=== PATIENT | male | born 1980 | race Caucasian/White ===

== ENCOUNTER 2019-10-27 13:53 | Inpatient (IN) | payer OTHER ==
[~2019-10-27] VITALS: Ht 170.2 cm; Wt 88.6 kg
[2019-10-27] MEDS ORDERED: CRES5TAB PO (14:02)
[2019-10-27] MEDS ORDERED: LISI2.5T2 PO (14:02)
[2019-10-27] MEDS ORDERED: METF-838 PO ×2 (14:04→16:43)
[2019-10-27 15:05] LABS: INR 0.96; PROTHROMBIN TIME 12.5 SECONDS (11.8-14.0)
[2019-10-27 15:06] LABS: PARTIAL THROMBOPLASTIN TIME 37.4 SECONDS (25.0-38.4)
[2019-10-27] MEDS ORDERED: ISOVUE-370 76% 100ML VIAL As Ordered ONE (15:36)
[2019-10-27] MEDS ORDERED: NS 1,000 ML IV ONE ×2 (15:45→17:00)
[2019-10-27 15:47] LABS: ALBUMIN 3.6 GM/DL (3.2-5.2); ALT/SGPT 45 U/L (12-78); AMYLASE 41 U/L (25-115); BASO # 0.1 10^3/uL (0.0-0.2); BASO % 0.5 % (0.0-1.0); BILIRUBIN,DIRECT 0.1 MG/DL (0.0-0.2); BILIRUBIN,TOTAL 1.1 MG/DL (0.2-1.0); EOS # 0.3 10^3/uL (0.0-0.5); EOS % 1.5 % (0.0-3.0); HEMATOCRIT 41.1 % (42.0-52.0); LIPASE 307 U/L (73-393); LYMPH # 3.1 10^3/uL (1.5-5.0); LYMPH % 16.5 % (24.0-44.0); MEAN CORPUSCULAR VOLUME 83.7 fl (80.0-96.0); MONO # 1.3 10^3/uL (0.0-0.8); MONO % 6.9 % (0.0-5.0); NEUTROPHILS % 73.8 % (36.0-66.0); PLATELET COUNT, AUTOMATED 272 10^3/uL (150-450); RED BLOOD COUNT 4.91 10^6/uL (4.30-6.10); TOTAL PROTEIN 7.2 GM/DL (6.4-8.2); TROPONIN I < 0.02 NG/ML (< 0.10); WHITE BLOOD COUNT 18.9 10^3/uL (4.0-10.0)
[2019-10-27 15:49] LABS: CK-MB VALUE MASS < 1.0 NG/ML (<3.6); CPK CREATINE PHOSPHOKINASE 73 U/L (39-308); HEMOGLOBIN 14.8 g/dl (13.5-17.5); MB/CK RELATIVE INDEX 1.37 (< OR =4)
[2019-10-27 15:50] LABS: MEAN CORPUSCULAR HEMOGLOBIN 30.3 pg (27.0-33.0); MEAN CORPUSCULAR HGB CONC 36.4 g/dl (32.0-36.5)
[2019-10-27] MEDS ORDERED: KETOROLAC 30 MG/ML 1ML VIAL IV ONE (16:30)
[2019-10-27] MEDS ORDERED: ACETAMINOPHEN 500 MG TAB PO ONE ×2 (16:30→19:00)
[2019-10-27] MEDS ORDERED: LISI10TA4 PO (16:43)
[2019-10-27] MEDS ORDERED: ESCI10TA2 PO (16:43)
[2019-10-27] MEDS ORDERED: ROSU20TA5 PO (16:43)
[2019-10-27] MEDS ORDERED: ZETI10TA16 PO (16:43)
[2019-10-27] MEDS ORDERED: PIPERACILLIN/TAZOBACTAM SOD 4.5 GM in D5W MINI-BAG PLUS 50 ML IV ONE (17:00)
[2019-10-27] MEDS ORDERED: NS 1,660 ML in IV 1 EA IV ONE (17:00)
[2019-10-27 17:43] LABS: C REACTIVE PROTEIN QUANTITATIV 7.33 MG/DL (0.00-0.30)
[2019-10-27 18:00] VITALS: BP 148/100
--- NOTE | 2019-10-27 18:26 | REPVR ---
PROCEDURE INFORMATION: Exam: US Abdomen, Limited; Right Upper Quadrant Exam date and time: 10/27/2019 5:34 PM Age: 39 years old Clinical indication: Condition or disease; Pancreatic condition; Pancreatitis; Additional info: Pancreatitis R/O gallstones TECHNIQUE: Imaging protocol: US abdomen. Real time ultrasound with image documentation. Limited exam focused on the right upper quadrant. COMPARISON: CT ABD/PEL W/IV CONTRAST ONLY 10/27/2019 3:37 PM FINDINGS: Liver: The liver is increased in echogenicity, most commonly due to fatty infiltration, but other chronic liver diseases may have a similar appearance. Evaluation of the liver is technically limited. A small area of hypoechogenicity is identified within the hepatic parenchyma adjacent to the gallbladder, likely due to fatty sparing. Gallbladder: Within the dependent portion of the gallbladder, there is a nonshadowing polyp or gallstone. This measures 3-4 mm in diameter. No significant gallbladder wall thickening. No pericholecystic fluid. Common bile duct: The common bile duct measures 4-5 mm in diameter, which is within normal limits. Pancreas: There is suboptimal evaluation of the pancreas, likely contributed by bowel gas. Refer to the CT abdomen/pelvis report from the same day for discussion of pancreatic findings in a patient with a clinical history of pancreatitis. Right kidney: The right kidney measures 11.7 x 5.1 x 4.7 cm. No hydronephrosis or shadowing nephrolithiasis. IMPRESSION: 1. The liver is increased in echogenicity, most commonly due to fatty infiltration, but other chronic liver diseases may have a similar appearance. 2. Within the dependent portion of the gallbladder, there is a small nonshadowing polyp or gallstone. Follow-up ultrasonography recommended. 3. Additional findings described above. Electronically signed by: Pal Cheung On 10/27/2019 18:26:01 PM
[2019-10-27] MEDS ORDERED: lisinopriL 10 MG TAB PO ONE (19:00)
[2019-10-27] MEDS ORDERED: LABETALOL 100 MG TAB PO ONE (19:00)
[2019-10-27] MEDS ORDERED: MORPHINE 30 MG TAB **MSIR PO PRN (19:00)
[2019-10-27] MEDS ORDERED: MORPHINE 4 MG/ML 1ML VIAL/SYRINGE (J2270) IV PRN (19:00)
[2019-10-27] MEDS ORDERED: ACETAMINOPHEN TAB 650MG DOSE (2X325MG) PO PRN (19:00)
[2019-10-27] MEDS ORDERED: PILL CUTTER 1 EACH XX PRN (19:00)
[2019-10-27] MEDS: ROSUVASTATIN 10 MG TAB (CRESTOR) PO SCH (20:53)
[2019-10-27 22:00] VITALS: BP 153/105
[2019-10-27] MEDS ORDERED: LABETALOL 100 MG TAB PO SCH (22:00)
[2019-10-27] MEDS ORDERED: DEXTROSE 50% 50 ML SYRINGE IV PRN (22:45)
[2019-10-27] MEDS ORDERED: **hydrALAZINE** 10 MG TAB PO PRN (22:45)
[2019-10-27] MEDS ORDERED: GLUCOSE 4GM CHEW TABLET PO PRN (22:45)
[2019-10-27] MEDS ORDERED: GLUCAGON INJ 1MG VIAL SC PRN (22:45)
[2019-10-27] MEDS: KETOROLAC 30 MG/ML 1ML VIAL IV SCH (23:05)
[2019-10-27] MEDS ORDERED: **hydrALAZINE** 10 MG TAB PO ONE (23:30)
[2019-10-27] MEDS: PIPERACILLIN/TAZOBACTAM SOD 4.5 GM in D5W MINI-BAG PLUS 50 ML IV SCH (23:46)
[2019-10-28] MEDS ORDERED: PIPERACILLIN/TAZOBACTAM SOD 4.5 GM in D5W MINI-BAG PLUS 50 ML IV SCH ×2
--- NOTE | 2019-10-28 02:54 | REP ---
CT ABDOMEN AND PELVIS WITH IV CONTRAST: TECHNIQUE: Axial contrast-enhanced images from the lung bases to the pubic symphysis using 100 mL Isovue-370 intravenous contrast material with multiplanar reformations. The visualized lung bases demonstrate no evidence of infiltrate. The liver is enlarged and demonstrates diffuse fatty infiltration. Spleen is unremarkable, as are the adrenal glands and kidneys. There is no hydronephrosis. There is inflammatory change surrounding the tail of the pancreas with mild free fluid in this region. Findings are consistent with pancreatitis. I see no pancreatic duct dilatation. The gallbladder is grossly unremarkable. There is no abdominal aortic aneurysm. There is no adenopathy. There is no free air. There is no bowel wall thickening. The appendix is normal. There is no pelvic mass. Urinary bladder is mildly distended and grossly unremarkable. IMPRESSION: Findings compatible with pancreatitis in the region of the tail of the pancreas. There is surrounding inflammatory change and mild free fluid. No evidence of pancreatic duct dilatation. Hepatomegaly; length of the liver is approximately 22 cm. There is diffuse fatty infiltration of the liver. Electronically Signed by Nathaniel Gallo MD 10/30/2019 10:48 P
[2019-10-28] MEDS: LABETALOL 100 MG TAB PO SCH ×3 (05:15→20:48)
[2019-10-28] MEDS: KETOROLAC 30 MG/ML 1ML VIAL IV SCH ×2 (05:16→10:04)
[2019-10-28] MEDS: PIPERACILLIN/TAZOBACTAM SOD 4.5 GM in D5W MINI-BAG PLUS 50 ML IV SCH ×3 (05:16→17:43)
[2019-10-28 06:00] VITALS: BP 142/101
[2019-10-28 06:32] LABS: IONIZED CALCIUM 4.3 MG/DL (4.5-5.3)
[2019-10-28 07:04] LABS: BASO # 0.1 10^3/uL (0.0-0.2); BASO % 0.4 % (0.0-1.0); EOS # 0.2 10^3/uL (0.0-0.5); EOS % 1.2 % (0.0-3.0); HEMATOCRIT 34.7 % (42.0-52.0); LYMPH % 12.2 % (24.0-44.0); MEAN CORPUSCULAR HEMOGLOBIN 30.8 pg (27.0-33.0); MEAN CORPUSCULAR VOLUME 84.2 fl (80.0-96.0); MONO % 6.2 % (0.0-5.0); NEUTROPHILS # 12.7 10^3/uL (1.5-8.5); NEUTROPHILS % 79.4 % (36.0-66.0); PLATELET COUNT, AUTOMATED 220 10^3/uL (150-450); RED BLOOD COUNT 4.12 10^6/uL (4.30-6.10)
[2019-10-28 07:08] LABS: HEMOGLOBIN 12.7 g/dl (13.5-17.5); MEAN CORPUSCULAR HGB CONC 36.6 g/dl (32.0-36.5)
[2019-10-28 07:19] LABS: ALBUMIN 2.4 GM/DL (3.2-5.2); BILIRUBIN,TOTAL 1.1 MG/DL (0.2-1.0); CALCIUM LEVEL 7.1 MG/DL (8.5-10.1); CARBON DIOXIDE LEVEL 24 MEQ/L (21-32); CHLORIDE LEVEL 99 MEQ/L (98-107); CHOLESTEROL LEVEL 372 MG/DL (<200); CREATININE FOR GFR 1.11 MG/DL (0.70-1.30); GLOMERULAR FILTRATION RATE > 60.0 (>60); GLUCOSE, FASTING 311 MG/DL (70-100); HDL CHOLESTEROL 25 MG/DL (>40); NON-HDL-C 347 MG/DL; POTASSIUM SERUM 3.7 MEQ/L (3.5-5.1); SODIUM LEVEL 132 MEQ/L (136-145); TRIGLYCERIDES LEVEL 3285 MG/DL (<150)
[2019-10-28 07:58] LABS: ALT/SGPT 31 U/L (12-78); BLOOD UREA NITROGEN 8 MG/DL (7-18); TOTAL PROTEIN 6.5 GM/DL (6.4-8.2)
[2019-10-28] MEDS: ROSUVASTATIN 10 MG TAB (CRESTOR) PO SCH (09:22)
[2019-10-28] MEDS: ESCITALOPRAM OXALATE 10 MG TAB (LEXAPRO) PO SCH (09:22)
[2019-10-28] MEDS: EZETIMIBE 10 MG TAB (ZETIA) PO SCH (09:23)
[2019-10-28] MEDS: lisinopriL 10 MG TAB PO SCH (09:23)
--- NOTE | 2019-10-28 10:13 | ECGEPIP ---
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
[2019-10-28] MEDS: NIACIN 100 MG TAB PO SCH ×3 (12:19→20:48)
[2019-10-28] MEDS ORDERED: FENO145T7 PO (12:24)
[2019-10-28] MEDS ORDERED: AUGM875T28 PO (12:24)
[2019-10-28] MEDS ORDERED: NIAC10TAB PO (12:24)
--- NOTE | 2019-10-28 12:30 | HPE ---
DATE OF ADMISSION: 10/27/2019 CHIEF COMPLAINT: Left upper quadrant abdominal pain. HISTORY OF PRESENT ILLNESS: This is a 39-year-old male with history of type 2 diabetes and hypertension, both diagnosed two years ago, hypertriglyceridemia, who had run out of his fenofibrate for the past week and has not been on medications who was well until yesterday morning when he woke up and was very hungry. He ate two bowls of cereal and drank the milk from the cereal bowl. He sat on his couch and fell asleep. Upon awakening, he had an epigastric left upper quadrant abdominal pain which was band-like and radiating across without fever or chills. The patient then went to work for two hours and had taken some Pepto Bismol when he returned but with persistent pain. He had nausea all day, but did not vomit. He then was able to sleep through the night, but it was still quite achy and stabbing. He took more Pepto Bismol, felt like he had a golf ball in his left upper quadrant. Then, this morning, the patient had persistent symptoms prompting him to come to the emergency room. He did have a normal bowel movement at 11:30 today. He said that it was formed stool, not diarrhea, and not acholic. The patient denies any fever or chills at home. He denies any shortness of breath, chest pain, pressure, or tightness, lightheadedness, or dizziness. No dysuria, urgency or frequency. No flank pain. The patient denies any rhinorrhea, congestion, changes in vision, upper or lower extremity weakness, paresthesia, abnormal lumps or bumps, anxiety, or depression. All other systems were negative. In the ER, he was found to be febrile with 100.3 to 100.4 temperature. White count of 18.9. Ultrasound of the gallbladder shows small non shadowing polyp or gallstone. Followup ultrasound recommended. The hospitalist was called to admit for acute pancreatitis. PAST MEDICAL HISTORY: 1. Diabetes type 2. 2. Hypertension. 3. Hypercholesterolemia. 4. The patient had a left wrist cyst with resection. 5. Left knee surgery. ALLERGIES: No known drug allergies. 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 He previously smoked cigarettes, about one pack a day since age of 15, quit 2 months ago. Social alcohol use. Says that he barely drinks two beers a month. FAMILY HISTORY: Father with obstructive sleep apnea (JESUS), chronic obstructive pulmonary disease (COPD), oxygen dependent, on dialysis, in his 70s. Mother in her 70s with hypercholesterolemia. REVIEW OF SYSTEMS: Per history of present illness (HPI), 12 point system otherwise negative. PHYSICAL EXAMINATION: Temperature 100.4, pulse 110, respiratory rate 18, blood pressure 140/90, 96% on room air. Generally, the patient is awake, alert and oriented to person, place and time, answering questions appropriately. Anicteric. No jaundice. No cervical lymphadenopathy or thyromegaly. Lungs are clear to auscultation. No wheezing, rales or rhonchi. Heart: S1, S2. Sinus tachycardia. No murmurs, rubs or gallops. Abdomen: Soft. Tender in the epigastric/left upper quadrant. No rebound or guarding. Positive bowel sounds. No hepatosplenomegaly. Extremities: No cyanosis, clubbing or any pitting edema. LABORATORY DATA: White count 18.9, hemoglobin 14, hematocrit 41, platelet count 272. Sodium 129, potassium 3.9, chloride 96, bicarbonate 25, BUN 10, creatinine 0.9, glucose 262. Urinalysis with 3+ protein, 3+ glucose, 1+ ketones, 1+ blood, negative nitrite and leukocyte esterase 0 WBCs. Total bilirubin 1.1, direct bilirubin 0.1, AST 26, ALT 45, alkaline phosphatase 89, total CK 73, MB fraction less than 1, troponin less than 0.02. C-reactive protein 7.33. Total protein 7.2. Albumin 3.6. Amylase 41. Lipase 306. Lactic acid 3.1. ASSESSMENT AND PLAN: This is a 39-year-old male with history of hyperlipidemia, hypertension, and diabetes who presents to the emergency room with two day history of epigastric/left upper quadrant abdominal pain found to have acute pancreatitis. IMPRESSION: 1. Acute pancreatitis. The patient is currently nothing by mouth on IV fluids. Will check lipid panel, calcium level in the morning. He may be resumed on his home medications. Pain medication with morphine IV as well as immediate release and Toradol intravenously to decrease inflammation and improve pain. Currently on IV fluids, normal saline bolus. 2. Hypertensive urgency. Currently blood pressure 180/110 and he can be resumed on his home dose of lisinopril. He did get one dose of labetalol 100 mg. Will continue to monitor patient's pain. 3. Hyperlipidemia. Continue on Zetia. Check lipid panel in the morning and ionized calcium. hyperlipidemia is the most likely cause of the patient's pancreatitis. He has no gallstones or alcohol abuse in the past. 4. DM2 on hypoglycemic protocol and fingersticks q6hrs while npo. Deep vein thrombosis (DVT) prophylaxis with compression stockings. MTDD
[2019-10-28] MEDS: FENOFIBRATE 145 MG TAB (TRICOR) PO SCH (12:36)
[2019-10-28 14:00] VITALS: BP 138/82
[2019-10-28] MEDS: NS 1,000 ML IV SCH (15:22)
[2019-10-28] MEDS ORDERED: KETOROLAC 30 MG/ML 1ML VIAL IV PRN (16:00)
[2019-10-28 22:00] VITALS: BP 120/88
[2019-10-29] MEDS: PIPERACILLIN/TAZOBACTAM SOD 4.5 GM in D5W MINI-BAG PLUS 50 ML IV SCH ×2 (00:18→05:40)
[2019-10-29] MEDS: NS 1,000 ML IV SCH (00:19)
[2019-10-29 05:00] VITALS: BP 140/93
[2019-10-29] MEDS: LABETALOL 100 MG TAB PO SCH (05:00)
[2019-10-29 06:34] LABS: BASO % 0.3 % (0.0-1.0); EOS # 0.4 10^3/uL (0.0-0.5); EOS % 3.2 % (0.0-3.0); HEMATOCRIT 33.6 % (42.0-52.0); HEMOGLOBIN 11.7 g/dl (13.5-17.5); LYMPH # 2.3 10^3/uL (1.5-5.0); MEAN CORPUSCULAR HEMOGLOBIN 29.9 pg (27.0-33.0); MEAN CORPUSCULAR HGB CONC 34.8 g/dl (32.0-36.5); MEAN CORPUSCULAR VOLUME 85.9 fl (80.0-96.0); MONO # 0.8 10^3/uL (0.0-0.8); MONO % 6.2 % (0.0-5.0); NEUTROPHILS # 9.2 10^3/uL (1.5-8.5); NEUTROPHILS % 71.8 % (36.0-66.0); PLATELET COUNT, AUTOMATED 211 10^3/uL (150-450); RED BLOOD COUNT 3.91 10^6/uL (4.30-6.10); WHITE BLOOD COUNT 12.9 10^3/uL (4.0-10.0)
[2019-10-29 07:22] LABS: ALBUMIN 2.3 GM/DL (3.2-5.2); BILIRUBIN,TOTAL 0.7 MG/DL (0.2-1.0); BLOOD UREA NITROGEN 9 MG/DL (7-18); CALCIUM LEVEL 7.5 MG/DL (8.5-10.1); CARBON DIOXIDE LEVEL 26 MEQ/L (21-32); CHLORIDE LEVEL 102 MEQ/L (98-107); CREATININE FOR GFR 0.89 MG/DL (0.70-1.30); GLOMERULAR FILTRATION RATE > 60.0 (>60); SODIUM LEVEL 132 MEQ/L (136-145)
[2019-10-29 08:42] LABS: GLUCOSE, FASTING 285 MG/DL (70-100); POTASSIUM SERUM 4.5 MEQ/L (3.5-5.1); TOTAL PROTEIN 5.8 GM/DL (6.4-8.2)
[2019-10-29 09:15] VITALS: BP 145/99
[2019-10-29] MEDS: FENOFIBRATE 145 MG TAB (TRICOR) PO SCH (09:15)
[2019-10-29] MEDS: ROSUVASTATIN 10 MG TAB (CRESTOR) PO SCH (09:15)
[2019-10-29] MEDS: EZETIMIBE 10 MG TAB (ZETIA) PO SCH (09:15)
[2019-10-29] MEDS: ESCITALOPRAM OXALATE 10 MG TAB (LEXAPRO) PO SCH (09:15)
[2019-10-29] MEDS: lisinopriL 10 MG TAB PO SCH (09:15)
[2019-10-29] MEDS: NIACIN 100 MG TAB PO SCH (09:15)
[2019-10-29 09:25] LABS: ALT/SGPT 31 IU/L (0-32)
--- NOTE | 2019-10-29 13:35 | DS.PDOC ---
Discharge Summary General Date of Admission Oct 27, 2019 at 16:50 Date of Discharge 10/29/2019 Discharge Summary PRIMARY CARE PHYSICIAN: Diamante Kelly ATTENDING AT TIME OF DISCHARGE: Dr. Pita Alberts, DO DISCHARGE DIAGNOS(E)S: Acute pancreatitis secondary to hypertriglyceridemia, and running out of fenofibrate a few weeks ago Diabetes mellitus type 2 Hypercholesterolemia Hypertension Known history of hypertriglyceridemia HPI & HOSPITAL COURSE: Patient has a known history of familial hypertriglyceridemia and hypercholesterolemia. Apparently he ran out of fenofibrate a few weeks ago, and presented to the emergency room with acute pancreatitis. He was then treated with nothing by mouth, IV fluids, and pain medication. He did quite well throu ghout his hospitalization, WBC trending down every day. Today he is tolerating a low cholesterol/low fat diet with only a minimal amount of aching in the stomach, but he does not have any of the severe pain that he previously had. Just to be safe, we'll send him home with a 7 day prescription of Augmentin, and a new prescription for fenofibrate and niacin, but otherwise he appears to be stable and safe for discharge at this time. PHYSICAL EXAMINATION ON DISCHARGE: GENERAL: Awake, alert, he is in no acute distress at this time. CARDIOVASCULAR EXAMINATION: Regular rate and rhythm, with no rubs, gallops, or murmur. RESPIRATORY EXAMINATION: Clear to auscultation bilaterally with no wheezes, rales, or rhonchi. ABDOMINAL EXAMINATION: Soft, minimally tender throughout, but palpation does not elicit any significant pain, nondistended. Bowel sounds present. EXTREMITIES: No clubbing or edema noted. 2+ pulses in the radial bilaterally. DISPOSITION: Home DISCHARGE INSTRUCTIONS: A follow-up with primary care provider within 1-2 weeks. Recommend a low residual/low fat diet. No alcohol for at least 1 month. Activity as tolerated. If symptoms return, or if you experience worsening of your symptoms, please call your doctor or return to the emergency department. DISCHARGE MEDICATIONS: Continue taking from home: No changes in his home medications, just new prescription for fenofibrate sent New Medications: Niacin 100 mg by mouth 3 times a day for 20 days Augmentin 875-125 one tablet by mouth twice a day for 7 days Vital Signs/I&Os Vital Signs Date Time Temp Pulse Resp B/P (MAP) Pulse Ox O2 Delivery O2 Flow Rate FiO2 10/29/19 09:15 145/99 7/11/20 05:00 98.4 97 20 98 Room Air I&O- Last 24 Hours up to 6 AM 10/29/19 06:00 Intake Total 3665 ml Output Total 1300 ml Balance 2365 ml Laboratory Data Labs 24H Laboratory Tests 2 10/28/19 17:57: Bedside Glucose (Misc Panel) 322H 10/29/19 01:15: Bedside Glucose (Misc Panel) 208H 10/29/19 05:47: Bedside Glucose (Misc Panel) 268H 10/29/19 06:03: Immature Granulocyte % (Auto) 0.5, Neutrophils (%) (Auto) 71.8H, Lymphocytes (%) (Auto) 18.0L, Monocytes (%) (Auto) 6.2H, Eosinophils (%) (Auto) 3.2H, Basophils (%) (Auto) 0.3, Neutrophils # (Auto) 9.2H, Lymphocytes # (Auto) 2.3, Monocytes # (Auto) 0.8, Eosinophils # (Auto) 0.4, Basophils # (Auto) 0.0, Nucleated Red Blood Cells % (auto) 0.0, Anion Gap 4L, Glomerular Filtration Rate > 60.0, Calcium Level 7.5L, Total Bilirubin 0.7, Aspartate Amino Transf (AST/SGOT) 38H, Alanine Aminotransferase (ALT/SGPT) 31, Alkaline Phosphatase 67, Total Protein 5.8L, Albumin 2.3L, Albumin/Globulin Ratio 0.7 CBC/BMP Laboratory Tests 10/29/19 06:03 FSBS Laboratory Tests Test 10/28/19 17:57 10/29/19 01:15 10/29/19 05:47 Range/Units Bedside Glucose (Misc Panel) 322 208 268 70-105 MG/DL Microbiology Microbiology 10/27/19 Blood Culture - Preliminary, Resulted No growth after 24 hours . All specim... 10/27/19 Respiratory Virus Panel (PCR) (LISETH) - Final, Complete 10/27/19 Blood Culture - Preliminary, Resulted No growth after 24 hours . All specim... Discharge Medications Scheduled Amoxicillin/Potassium Clav (Augmentin 875-125 Tablet) 1 Each Tablet, 875 MG PO BID Escitalopram Oxalate (Escitalopram Oxalate) 10 Mg Tablet, 10 MG PO DAILY, (Reported) Ezetimibe (Zetia) 10 Mg Tablet, 10 MG PO DAILY, (Reported) Fenofibrate Nanocrystallized (Fenofibrate) 145 Mg Tablet, 145 MG PO DAILY Lisinopril (Lisinopril) 10 Mg Tablet, 10 MG PO DAILY, (Reported) Metformin HCl (Metformin HCl ER) 500 Mg Tab.er.24h, 1,000 MG PO BID, (Reported) Niacin (Niacin) 100 Mg Tablet, 100 MG PO TID Rosuvastatin Calcium (Rosuvastatin Calcium) 20 Mg Tablet, 20 MG PO DAILY, (Reported) Allergies Coded Allergies: No Known Allergies (Unverified , 10/27/19) PITA ALBERTS DO Oct 29, 2019 13:35
== END 2019-10-29 11:34 | disposition home or self-care (01) | DRG 440 ==
LOC: M ED 13:53 → M ED INP 16:50 → ENRESERV 17:20 → M MSPAV 18:04
PROVIDERS: ADMIT General Practice; ATTEND Neuromusculoskeletal Medicine & OMM
DX: K85.90 Acute pancreatitis without necrosis or infection, unspecified (principal); E11.9 Type 2 diabetes mellitus without complications; E78.2 Mixed hyperlipidemia; Z79.84 Long term (current) use of oral hypoglycemic drugs; Z79.899 Other long term (current) drug therapy; Z87.891 Personal history of nicotine dependence; I16.0 Hypertensive urgency; Z91.138 Patient's unintentional underdosing of medication regimen for other reason; T46.6X6A Underdosing of antihyperlipidemic and antiarteriosclerotic drugs, initial encounter; Z11.59 Encounter for screening for other viral diseases

== ENCOUNTER → 2020-03-01 | Outpatient (REF) | payer OTHER ==
[~2020-03-01] MED LIST: AUGM875T28 PO; CRES5TAB PO; ESCI10TA2 PO; FENO145T7 PO; LISI10TA4 PO; LISI2.5T2 PO; METF-838 PO; NIAC1TAB14 PO; ROSU20TA5 PO; ZETI10TA16 PO
[2020-03-01 18:43] LABS: MAU/CREAT RATIO 332.9 MCG/MG (0.0-30.0)
== END ==
LOC: M LAB REF 17:06
PROVIDERS: ATTEND Nurse Practitioner Family
DX: E11.65 Type 2 diabetes mellitus with hyperglycemia (principal)

== ENCOUNTER → 2020-06-26 | Outpatient (CLI) | payer OTHER ==
[~2020-06-26] MED LIST changes: +ESCI10TA16 PO; -ESCI10TA2 PO; +LISI10TA22 PO; -LISI10TA4 PO
--- NOTE | 2020-06-26 08:57 | REP ---
INDICATION: SACROCOCCYGEAL DISORDERS, NOT ELSEWHERE CLASSIFIED. COMPARISON: None. TECHNIQUE: Four views of the bilateral sacroiliac joints FINDINGS: The bilateral sacroiliac joints are symmetric and normal. Visualized osseous structures are intact and normal. Surrounding soft tissues are unremarkable. IMPRESSION: Normal sacroiliac joint radiographic evaluation. <Electronically signed by Bartolo Gasca > 06/26/20 [id number]
== END ==
LOC: M LAB 08:03
PROVIDERS: ATTEND Internal Medicine
DX: M53.3 Sacrococcygeal disorders, not elsewhere classified (principal); Z15.89 Genetic susceptibility to other disease

== ENCOUNTER → 2020-06-27 | Outpatient (CLI) | payer OTHER ==
--- NOTE | 2020-06-27 10:54 | REP ---
INDICATION: SACROILIAC PAIN, (+)[id number]. COMPARISON: Radiographs 06/26/2020. TECHNIQUE: Multiple sequences obtained in the axial, coronal and sagittal plane. FINDINGS: The osseous structures of the pelvis demonstrate normal bone marrow signal. There is no bone marrow edema or occult fracture. There is no evidence of sacroiliitis. There is no evidence of avascular necrosis of the femoral heads. No adenopathy or mass is seen in the pelvis. There is no free fluid. There is no abnormal signal in the soft tissue structures of the pelvis. IMPRESSION: Negative MRI pelvis. No abnormal bone marrow signal and no evidence of sacroiliitis. <Electronically signed by Nathaniel Gallo > 06/27/20 [id number]
== END ==
LOC: M RAD 08:24
PROVIDERS: ATTEND Internal Medicine
DX: M53.3 Sacrococcygeal disorders, not elsewhere classified (principal); Z15.89 Genetic susceptibility to other disease

== ENCOUNTER → 2020-06-29 | Outpatient (REF) | payer OTHER | LOC: M SFHCRHEU 09:16 | PROVIDERS: ATTEND Internal Medicine | DX: E55.9 Vitamin D deficiency, unspecified (principal) | CPT/HCPCS: 82306; G0463 ==

== ENCOUNTER 2020-10-16 15:42 | Emergency (ER) | payer OTHER ==
[~2020-10-16] VITALS: Ht 170.2 cm; Wt 86.6 kg
[2020-10-16] MEDS ORDERED: JARD1TAB3 PO (15:50)
[2020-10-16] MEDS ORDERED: NS 1,000 ML IV ONE (16:35)
[2020-10-16 18:43] LABS: HEMATOCRIT 38.5 % (42.0-52.0); HEMOGLOBIN 13.8 g/dl (13.5-17.5); MEAN CORPUSCULAR HEMOGLOBIN 30.4 pg (27.0-33.0); MEAN CORPUSCULAR VOLUME 84.8 fl (80.0-96.0); PLATELET COUNT, AUTOMATED 255 10^3/uL (150-450); RED BLOOD COUNT 4.54 10^6/uL (4.30-6.10); WHITE BLOOD COUNT 10.7 10^3/uL (4.0-10.0)
[2020-10-16 18:45] LABS: MEAN CORPUSCULAR HGB CONC 35.8 g/dl (32.0-36.5)
[2020-10-16 18:53] LABS: ALBUMIN 2.5 GM/DL (3.2-5.2); BILIRUBIN,DIRECT < 0.1 MG/DL (0.0-0.2); BILIRUBIN,TOTAL 1.4 MG/DL (0.2-1.0); BLOOD UREA NITROGEN 11 MG/DL (7-18); CALCIUM LEVEL 6.2 MG/DL (8.5-10.1); CARBON DIOXIDE LEVEL 24 MEQ/L (21-32); CHLORIDE LEVEL 90 MEQ/L (98-107); CREATININE FOR GFR 0.94 MG/DL (0.70-1.30); GLOMERULAR FILTRATION RATE > 60.0 (>60); GLUCOSE, FASTING 261 MG/DL (70-100); LIPASE 142 U/L (73-393); SODIUM LEVEL 125 MEQ/L (136-145); TOTAL PROTEIN 6.4 GM/DL (6.4-8.2)
[2020-10-16 19:00] LABS: BASOPHILS 2 % (0-1); EOSINOPHILS 3 % (0-3); LYMPHOCYTES 26 % (16-44); MONOCYTES 3 % (0-5); NEUTROPHILS 66 % (28-66); PLATELET ESTIMATE NORMAL (NORMAL)
--- NOTE | 2020-10-16 21:00 | REPVR ---
PROCEDURE INFORMATION: Exam: US Abdomen, Limited; Right Upper Quadrant Exam date and time: 10/16/2020 8:00 PM Age: 40 years old Clinical indication: Abdominal pain; Acute; Additional info: Upper abd pain TECHNIQUE: Imaging protocol: US abdomen. Real time ultrasound with image documentation. Limited exam focused on the right upper quadrant. COMPARISON: 1. GALLBLADDER US 10/27/2019 5:[address] ABD/PEL W/IV CONTRAST ONLY 10/27/2019 3:37:29 PM FINDINGS: Liver: The echogenicity of the liver is increased, which is compatible with fatty liver infiltration. There is focal fatty sparing adjacent to gallbladder fossa. No liver lesion is identified from the images obtained. The contour of the liver is smooth. Gallbladder: There is a 3 mm polyp in the body of the gallbladder, which is unchanged compared to the prior ultrasound on 10/27/2019. No calculi are seen in the gallbladder. There is no gallbladder wall thickening or pericholecystic fluid. No sonographic Rivas's sign was reported by the radioisotope technologist. Common bile duct: No dilation (6 mm in diameter). No stones are identified in the imaged portion of the common bile duct. Pancreas: The imaged portion of the pancreas is unremarkable. The tail of pancreas is obscured by gas in the stomach and bowel. Right kidney: The right kidney is normal in appearance and measures 11.9 cm in length. There is no renal cortical thinning. The renal cortical echogenicity is within normal limits. No renal lesion is seen. There is no hydronephrosis. No obvious stones are seen in the renal collecting system. Intraperitoneal space: No free fluid is seen from the images obtained. IMPRESSION: 1. No acute sonographic abnormality seen in the right upper quadrant of the abdomen. 2. 3 mm polyp in the body of the gallbladder, which is unchanged compared to the prior ultrasound on 10/27/2019. See management guidelines below. 3. Fatty liver. If the patient has no risk factors* for gallbladder malignancy: For polyp <6 mm, follow-up ultrasound at 1, 3, and 5 years. For polyp >6 mm, follow-up ultrasound at 6 months, then yearly for 5 years. If polyp increases in size >2 mm, consider cholecystectomy. For polyp >10 mm, cholecystectomy recommended. If the patient has risk factors* for gallbladder malignancy: For polyp <6 mm, follow-up ultrasound at 6 months, then yearly for 5 years. If polyp increases in size >2 mm, consider cholecystectomy. For polyp >6 mm, consider cholecystectomy. For polyp >10 mm, cholecystectomy recommended. *Risk factors for gallbladder malignancy: >50 years old, primary sclerosing cholangitis, [place] ethnicity, sessile polyp, or focal wall thickening >4 mm. Electronically signed by: Malcolm Pope On 10/16/2020 20:59:56 PM
[2020-10-16 21:31] LABS: HEMOGLOBIN A1c 9.9 %
[2020-10-16] MEDS ORDERED: OMEP-218 PO (21:42)
[2020-10-16] MEDS ORDERED: OMEPRAZOLE 20 MG CAP PO ONE (21:45)
[2020-10-16 21:55] VITALS: BP 131/87
--- NOTE | 2020-10-19 13:09 | ED PDOC ---
Post-Departure Follow-Up radiology report faxed to [facility] Lelia Castillo MD Oct 19, 2020 13:09
== END 2020-10-16 22:02 | disposition home or self-care (01) ==
LOC: M ED 15:42
DX: K21.9 Gastro-esophageal reflux disease without esophagitis (principal); E11.9 Type 2 diabetes mellitus without complications; E87.1 Hypo-osmolality and hyponatremia; I10 Essential (primary) hypertension; F41.9 Anxiety disorder, unspecified; Z79.899 Other long term (current) drug therapy; Z79.84 Long term (current) use of oral hypoglycemic drugs; Z77.098 Contact with and (suspected) exposure to other hazardous, chiefly nonmedicinal, chemicals